=== PATIENT | male | born 1970 | race African-American/Black ===

== ENCOUNTER 2024-11-14 08:42 | Emergency (ER) | payer SELFPAY ==
[~2024-11-14] VITALS: Ht 182.9 cm; Wt 100.0 kg
[2024-11-14 08:55] VITALS: O2SAT 100
[2024-11-14 09:00] VITALS: O2SAT 98
[2024-11-14] MEDS ORDERED: CYCL10TA21 MT (10:18)
[2024-11-14] MEDS ORDERED: LIDO-19 TOP (10:20)
[2024-11-14 11:11] VITALS: PULSE 78
[2024-11-14] MEDS: KETOROLAC 30MG/ML VIAL IM ONE (11:11)
[2024-11-14 11:12] VITALS: BP 128/81; RESP 16; TEMP 98.4
[2024-11-14] MEDS: LIDOCAINE 5% PATCH TOP ONE (11:12)
[2024-11-14] MEDS: ACETAMINOPHEN 325MG TABLET PO ONE (11:12)
== END 2024-11-14 11:14 | disposition home or self-care (01) ==
LOC: ER 08:42
DX: M62.838 Other muscle spasm (principal)
CPT/HCPCS: 96372; 99283; J1885; Z7610